=== PATIENT | female | born 1950 | race Two or more races ===

== ENCOUNTER 2021-06-06 17:38 | Emergency (ER) | payer MEDICAID, OTHER ==
[~2021-06-06] VITALS: Ht 170.2 cm; Wt 99.8 kg
[2021-06-06 17:41] VITALS: BP 149/65
[2021-06-06] MEDS ORDERED: GEN03OS LEFTEYE ×2 (21:07→21:24)
== END 2021-06-06 21:28 | disposition home or self-care (01) ==
LOC: ER 17:38
DX: H10.9 Unspecified conjunctivitis (principal); I10 Essential (primary) hypertension; E11.9 Type 2 diabetes mellitus without complications

== ENCOUNTER 2022-02-15 12:40 | Emergency (ER) | payer MEDICAID, OTHER ==
[~2022-02-15] VITALS: Ht 170.2 cm; Wt 115.0 kg
[~2022-02-15 12:40] MED LIST: GEN03OS LEFTEYE
[2022-02-15 12:58] VITALS: BP 158/76
[2022-02-15 13:19] LABS: Basophils # (auto) 0 10 ^3/uL (0-0.2); Basophils % (auto) 0.4 % (0.0-2.0); Eosinophils # (auto) 0.1 10 ^3/uL (0-0.8); Eosinophils % (auto) 1.6 % (0.0-7.0); Hematocrit 41.1 % (36.0-46.0); Hemoglobin 13.6 g/dL (12.2-16.2); Lymphocytes % (auto) 18.2 % (10.0-50.0); Mean Corpuscular Hemoglobin 29.7 pg (28.0-32.0); Mean Corpuscular Volume 90.1 fL (80.0-100.0); Monocytes # (auto) 0.6 10 ^3/uL (0-1.3); Monocytes % (auto) 11.3 % (0.0-12.0); Neutrophils # (auto) 3.7 10 ^3/uL (1.6-8.6); Neutrophils % (auto) 68.5 % (37.0-80.0); Nucleated Red Blood Cells % 0.1 %; Red Blood Cells 4.56 10^6/uL (4.0-5.20); White Blood Cell 5.5 10^3/uL (4.4-10.8)
[2022-02-15 13:29] LABS: BUN/Creatinine Ratio 20.2; Calcium 9.4 mg/dL (8.5-10.1)
[2022-02-15 13:31] LABS: Bilirubin, Total 0.6 mg/dL (0.2-1.0); Total Protein 7.3 g/dL (6.4-8.2)
[2022-02-15] MEDS ORDERED: ENOXAPARIN SOD 120 MG/0.8 ML SYRINGE SC ONE (14:15)
[2022-02-15 15:20] LABS: Urine Bacteria FEW /hpf (None Seen); Urine Blood Negative /uL (Negative); Urine Specific Gravity 1.018 (1.001-1.035); Urine WBC 14 /hpf (0 - 5)
[2022-02-15] MEDS ORDERED: ACETAMINOPHEN 325 MG TAB PO PRN (21:30)
[2022-02-16] MEDS ORDERED: ENOXAPARIN SOD 40 MG/0.4 ML SYRINGE SC SCH (10:00)
== END 2022-02-15 21:58 | disposition left against medical advice (07) ==
LOC: ER 12:40 → UNDOADMIN 21:26 → OVERFLOW 21:26 → UNDODISIN 21:59
DX: R06.03 Acute respiratory distress (principal); R79.89 Other specified abnormal findings of blood chemistry; E11.9 Type 2 diabetes mellitus without complications; I10 Essential (primary) hypertension; Z20.822 Contact with and (suspected) exposure to COVID-19
CPT/HCPCS: 36415; 71045; 80053; 81001; 83880; 84484; 85025; 85379; 87426; 87804; G0378

== ENCOUNTER 2023-08-23 10:30 | Inpatient (IN) | payer OTHER ==
[~2023-08-23] VITALS: Ht 167.6 cm; Wt 125.0 kg
[2023-08-23 11:15] VITALS: PULSE 54; RESP 16; O2SAT 99
[2023-08-23 11:54] LABS: Basophils # (auto) 0 10 ^3/uL (0-0.2); Basophils % (auto) 0.3 % (0.0-2.0); Eosinophils # (auto) 0.1 10 ^3/uL (0-0.8); Hematocrit 36.8 % (36.0-46.0); Hemoglobin 11.5 g/dL (12.2-16.2); Lymphocytes # (auto) 0.6 10 ^3/uL (0.4-5.4); Lymphocytes % (auto) 12.5 % (10.0-50.0); Mean Corpuscular Hgb Conc. 31.4 g/dL (32.0-36.0); Monocytes # (auto) 0.5 10 ^3/uL (0-1.3); Monocytes % (auto) 10.9 % (0.0-12.0); Neutrophils # (auto) 3.4 10 ^3/uL (1.6-8.6); Neutrophils % (auto) 74.3 % (37.0-80.0); Nucleated Red Blood Cells % 0.1 %; Red Blood Cells 4.27 10^6/uL (4.0-5.20); Red Cell Distribution Width 16.8 % (11.8-14.3); White Blood Cell 4.6 10^3/uL (4.4-10.8)
[2023-08-23 12:05] LABS: Alanine Aminotransferase 47 U/L (7-40); Albumin 3.8 g/dL (3.2-4.8); Alkaline Phosphatase 69 U/L (46-116); Anion Gap 6 (5-15); Aspartate Aminotransferase 52 U/L (13-40); BUN/Creatinine Ratio 18.3 (10.0-20.0); Blood Urea Nitrogen 17 mg/dL (9-23); Calcium 8.5 mg/dL (8.7-10.4); Carbon Dioxide 24 mmol/L (20-30); Chloride 103 mmol/L (98-107); Glucose 99 mg/dL (74-106); Lipase 25 U/L (12-53); Magnesium 1.7 mg/dL (1.6-2.6); Potassium 3.4 mmol/L (3.5-5.1); Sodium 133 mmol/L (136-145)
[2023-08-23 12:06] LABS: Bilirubin, Total 0.4 mg/dL (0.2-1.0)
[2023-08-23 12:11] LABS: INR 1.04 (0.9-1.15); Partial Thromboplastin Time 29.9 SEC (24.5-34.5)
[2023-08-23] MEDS: CLOPIDOGREL BISULFATE 75 MG TAB PO ONE (14:46)
[2023-08-23] MEDS: ASPirin 81 mg TAB PO ONE (14:46)
[2023-08-23 19:30] VITALS: PULSE 84; RESP 10; O2SAT 93
[2023-08-24] VITALS (7 sets, daily range): BP systolic 96–117; BP diastolic 40–59; PULSE 59–72; RESP 15–17; TEMP 97.8–98.1; O2SAT 90–95
[2023-08-24] MEDS: SODIUM CHLORIDE 0.9% 1,000 ML IV ONE (00:30)
[2023-08-24 01:09] LABS: Urine Bacteria None Seen /hpf (None Seen)
[2023-08-24 01:17] LABS: Urine Blood Negative /uL (Negative); Urine Clarity Clear (Clear); Urine Color Yellow (Yellow); Urine Protein, UAD TRACE (Negative); Urine Urobilinogen Normal (Negative); Urine WBC 3 /hpf (0 - 5)
[2023-08-24] MEDS ORDERED: NITROGLYCERIN 0.4 MG SL TAB SL PRN (03:30)
[2023-08-24] MEDS ORDERED: DOCUSATE SOD 100 MG CAP PO PRN (03:30)
[2023-08-24] MEDS ORDERED: ONDANSETRON HCL 4 MG/2 ML VIAL IV PRN (03:30)
[2023-08-24] MEDS ORDERED: MORPHINE SULFATE INJ 2 MG/ml SYRG IV PRN (03:30)
[2023-08-24] MEDS: SODIUM CHLORIDE 0.9% 1,000 ML IV SCH (03:39)
[2023-08-24] MEDS: POTASSIUM CHL 20 Meq TABLET PO ONE (03:55)
[2023-08-24 05:22] LABS: Basophils # (auto) 0 10 ^3/uL (0-0.2); Basophils % (auto) 0.2 % (0.0-2.0); Eosinophils # (auto) 0.1 10 ^3/uL (0-0.8); Eosinophils % (auto) 1.2 % (0.0-7.0); Hematocrit 35.3 % (36.0-46.0); Hemoglobin 11.2 g/dL (12.2-16.2); Lymphocytes # (auto) 0.7 10 ^3/uL (0.4-5.4); Lymphocytes % (auto) 12.7 % (10.0-50.0); Mean Corpuscular Hemoglobin 27.5 pg (28.0-32.0); Mean Corpuscular Hgb Conc. 31.7 g/dL (32.0-36.0); Mean Corpuscular Volume 86.9 fL (80.0-100.0); Monocytes # (auto) 0.7 10 ^3/uL (0-1.3); Monocytes % (auto) 11.6 % (0.0-12.0); Neutrophils # (auto) 4.3 10 ^3/uL (1.6-8.6); Neutrophils % (auto) 74.3 % (37.0-80.0); Red Blood Cells 4.07 10^6/uL (4.0-5.20); Red Cell Distribution Width 17.4 % (11.8-14.3); White Blood Cell 5.8 10^3/uL (4.4-10.8)
[2023-08-24 05:39] LABS: Alanine Aminotransferase 106 U/L (7-40); Albumin 3.7 g/dL (3.2-4.8); Alkaline Phosphatase 78 U/L (46-116); Anion Gap 7 (5-15); Aspartate Aminotransferase 104 U/L (13-40); BUN/Creatinine Ratio 12.9 (10.0-20.0); Bilirubin, Total 0.4 mg/dL (0.2-1.0); Blood Urea Nitrogen 16 mg/dL (9-23); Calcium 8.5 mg/dL (8.7-10.4); Carbon Dioxide 25 mmol/L (20-30); Chloride 103 mmol/L (98-107); Glucose 89 mg/dL (74-106); Potassium 3.5 mmol/L (3.5-5.1); Sodium 135 mmol/L (136-145); Total Protein 6.3 g/dL (5.7-8.2)
[2023-08-24] MEDS: HYDROcodone-ACET 5/325MG TAB PO PRN (06:43)
[2023-08-24] MEDS: ASPirin 81 mg TAB PO SCH (11:39)
[2023-08-24] MEDS ORDERED: METF-370 PO (15:16)
[2023-08-24] MEDS ORDERED: AMLO1TAB22 PO (15:16)
[2023-08-24] MEDS ORDERED: ATOR10TA52 PO (15:16)
[2023-08-24] MEDS: IOHEXOL 350 MG/ML 100ML IJ ONE (18:29)
[2023-08-24] MEDS ORDERED: CARV6.2551 PO (19:24)
[2023-08-24] MEDS ORDERED: HYDR50TA47 PO (19:24)
[2023-08-25 01:00] VITALS: BP 116/54; PULSE 60; RESP 17; TEMP 98.3; O2SAT 95
[2023-08-25 05:00] VITALS: BP 112/56; PULSE 60; RESP 18; TEMP 98; O2SAT 90
[2023-08-25] MEDS: IBUPROFEN 600 MG TAB PO PRN (05:59)
[2023-08-25 07:07] LABS: Basophils # (auto) 0 10 ^3/uL (0-0.2); Basophils % (auto) 0.3 % (0.0-2.0); Eosinophils # (auto) 0.1 10 ^3/uL (0-0.8); Eosinophils % (auto) 3.2 % (0.0-7.0); Hematocrit 33.2 % (36.0-46.0); Hemoglobin 10.8 g/dL (12.2-16.2); Lymphocytes # (auto) 1.1 10 ^3/uL (0.4-5.4); Lymphocytes % (auto) 26.2 % (10.0-50.0); Mean Corpuscular Hemoglobin 27.9 pg (28.0-32.0); Mean Corpuscular Hgb Conc. 32.5 g/dL (32.0-36.0); Monocytes # (auto) 0.4 10 ^3/uL (0-1.3); Neutrophils # (auto) 2.4 10 ^3/uL (1.6-8.6); Neutrophils % (auto) 59.3 % (37.0-80.0); Red Blood Cells 3.87 10^6/uL (4.0-5.20); Red Cell Distribution Width 16.5 % (11.8-14.3); White Blood Cell 4.1 10^3/uL (4.4-10.8)
[2023-08-25 07:27] LABS: Alanine Aminotransferase 78 U/L (7-40); Albumin 3.6 g/dL (3.2-4.8); Alkaline Phosphatase 81 U/L (46-116); Anion Gap 5 (5-15); Aspartate Aminotransferase 45 U/L (13-40); BUN/Creatinine Ratio 18.4 (10.0-20.0); Bilirubin, Total 0.3 mg/dL (0.2-1.0); Blood Urea Nitrogen 14 mg/dL (9-23); Calcium 8.7 mg/dL (8.5-10.1); Carbon Dioxide 28 mmol/L (20-30); Chloride 107 mmol/L (98-107); Glucose 130 mg/dL (74-106); Potassium 3.4 mmol/L (3.5-5.1); Sodium 140 mmol/L (136-145); Total Protein 6.1 g/dL (5.7-8.2)
[2023-08-25 08:00] VITALS: PULSE 59
[2023-08-25 09:00] VITALS: BP 119/63; PULSE 63; RESP 18; TEMP 98.2; O2SAT 95
[2023-08-25 13:00] VITALS: BP 131/66; PULSE 64; RESP 18; TEMP 98.6; O2SAT 96
== END 2023-08-25 15:00 | disposition home or self-care (01) | DRG 861 ==
LOC: ER 10:30 → TELE 08-24 03:25 → TELE-CENTR 08-24 08:59
PROVIDERS: ADMIT Nurse Practitioner Family; ATTEND Family Medicine
DX: R53.1 Weakness (principal); N17.0 Acute kidney failure with tubular necrosis; E11.9 Type 2 diabetes mellitus without complications; I10 Essential (primary) hypertension; R74.8 Abnormal levels of other serum enzymes; R19.7 Diarrhea, unspecified
CPT/HCPCS: 36415; 70450; 70496; 71045; 72131; 74177; 80053; 81001; 82607; 83690; 83735; 83880; 84443; 84484; 85025; 85610; 85730; 93005; G0378